=== PATIENT | female | born 1945 | race Caucasian/White ===

== ENCOUNTER 2016-09-05 09:58 | Outpatient (CLI) | payer MEDICARE, OTHER ==
[2016-09-05 12:55] LABS: ALBUMIN/GLOBULIN RATIO 1.7 (1.0-2.2); BILIRUBIN,TOTAL 1.2 mg/dL (0.2-1.0); BUN - BLOOD UREA NITROGEN 9 mg/dL (6-20); CALCIUM 9.3 mg/dL (8.5-10.3); CARBON DIOXIDE - CO2 25 mmol/L (21-32); CHLORIDE 93 mmol/L (101-111); CHOL/HDL RATIO 3.4 (<4.4); CHOLESTEROL 255 mg/dL; CREATININE 0.5 mg/dL (0.4-1.0); GFR - MDRD 123 (>89); GLUCOSE 107 mg/dL (70-100); HDL CHOLESTEROL 76 mg/dL; LDL/HDL RATIO 2.2 (<4.4); POTASSIUM 4.1 mmol/L (3.5-5.0); SODIUM 126 mmol/L (135-145); TOTAL PROTEIN 6.7 g/dL (6.7-8.2); TRIGLYCERIDES 67 mg/dL; VLDL CHOLESTEROL 13 mg/dL
[2016-09-05 13:03] LABS: BASOPHILS % (AUTO) 0.4 %; EOSINOPHILS % (AUTO) 0.5 %; HCT - HEMATOCRIT 34.7 % (37.0-47.0); LYMPHOCYTES # (AUTO) 0.8 10^3/uL (1.5-3.5); MEAN CORPUSCULAR HEMOGLOBIN 30.9 pg (27.0-31.0); MEAN CORPUSCULAR HGB CONC 34.5 g/dL (32.0-36.0); MEAN CORPUSCULAR VOLUME 89.5 fL (81.0-99.0); MEAN PLATELET VOLUME 8.5 fL (7.9-10.8); MONOCYTES # (AUTO) 0.3 10^3/uL (0.0-1.0); MONOCYTES % (AUTO) 5.9 %; NEUTROPHILS # (AUTO) 3.7 10^3/uL (1.5-6.6); NEUTROPHILS % (AUTO) 77.2 %; RED BLOOD COUNT 3.87 10^6/uL (4.20-5.40); RED CELL DISTRIBUTION WIDTH 13.1 % (12.0-15.0); UNCORRECTED WHITE BLOOD COUNT 4.8 x10^3/uL; WHITE BLOOD COUNT 4.8 x10^3/uL (4.8-10.8)
[2016-09-05 17:31] LABS: IRON 118 ug/dL (28-170); TOTAL IRON BINDING CAPACITY 398 ug/dL (250-450); TRANSFERRIN 284 mg/dL (192-382)
[2016-09-05 17:37] LABS: FERRITIN 83.9 ng/mL (11.0-306.8)
== END 2016-09-05 09:59 | disposition home or self-care (01) ==
LOC: LAB.N 09:58
PROVIDERS: ATTEND Physician Assistant
DX: R63.4 Abnormal weight loss (principal)
CPT/HCPCS: 36415; 70210; 80053; 80061; 82607; 82728; 83540; 84443; 84466; 85025

== ENCOUNTER 2016-09-05 13:50 | Outpatient (CLI) | payer MEDICARE, OTHER ==
--- NOTE | 2016-09-05 16:33 | XRAY Report ---
GUTIÉRREZ VIEW OF THE PARANASAL SINUSES: 09/05/2016 CLINICAL INDICATION: Weight loss, chronic hoarseness. FINDINGS: Gutiérrez view of the paranasal sinuses demonstrates no evidence of mucosal thickening. No os seous destruction is seen. IMPRESSION: NO EVIDENCE OF SINUS DISEASE ON THIS SINGLE GUTIÉRREZ VIEW. JOB #: [id number] EXT JOB #:[id number]
== END 2016-09-05 13:51 | disposition home or self-care (01) ==
LOC: DI.N 13:50
PROVIDERS: ATTEND Physician Assistant
DX: R63.4 Abnormal weight loss (principal); R49.0 Dysphonia
CPT/HCPCS: 70210

== ENCOUNTER 2016-10-19 08:00 | Outpatient (CLI) | payer MEDICARE | END 2016-10-19 08:01 | disposition home or self-care (01) | LOC: LAB.N 08:00 | PROVIDERS: ATTEND Nurse Practitioner Gerontology | DX: E87.1 Hypo-osmolality and hyponatremia (principal) | CPT/HCPCS: 36415; 84295 ==

== ENCOUNTER 2016-11-08 08:45 | Outpatient (CLI) | payer MEDICARE | END 2016-11-08 08:46 | LOC: LAB.R 08:45 | PROVIDERS: ATTEND Nurse Practitioner Gerontology | DX: R63.4 Abnormal weight loss (principal); R49.0 Dysphonia | CPT/HCPCS: 87338 ==